=== PATIENT | female | born 1950 | race Caucasian/White ===

== ENCOUNTER 2021-10-07 10:19 | Outpatient (CLI) | payer MEDICARE, BC | END 2021-10-07 10:20 | disposition home or self-care (01) | LOC: CSHMAMMO 10:19 | PROVIDERS: ATTEND Obstetrics & Gynecology | DX: Z12.31 Encounter for screening mammogram for malignant neoplasm of breast (principal) | CPT/HCPCS: 77063; 77067 ==

== ENCOUNTER 2022-12-19 17:25 | Emergency (ER) | payer MEDICARE, BC ==
[2022-12-19] MEDS ORDERED: Bicillin LA 1.2 MILLION UNITS/2 ML SYRINGE IM SCH (18:00)
== END 2022-12-19 18:12 | disposition home or self-care (01) ==
LOC: CSHERS 17:25
DX: J02.0 Streptococcal pharyngitis (principal)
CPT/HCPCS: 99282; J0561

== ENCOUNTER 2023-10-14 09:36 | Outpatient (CLI) | payer MEDICARE, BC | END 2023-10-14 09:37 | disposition home or self-care (01) | LOC: CSHMAMMO 09:36 | PROVIDERS: ATTEND Family Medicine | DX: Z12.31 Encounter for screening mammogram for malignant neoplasm of breast (principal) | CPT/HCPCS: 77063; 77067 ==